=== PATIENT | female | born 1935 | race Caucasian/White ===

== ENCOUNTER 2017-01-10 17:30 | Emergency (ER) | payer MEDICARE ==
[~2017-01-10 17:30] MED LIST: ASAB PO; AZOR1 TA1 OR; DETROLLA4 PO; FISH-EPA1000 MG PO; FLAX SEED1000 MG OR; MAXZIDE PO; VITAMIN D31000 UNIT PO; ZOCOR20 PO
== END 2017-01-10 17:58 | disposition home or self-care (01) ==
LOC: ER 17:30
PROC: 2W3SXYZ Immobilization of Right Foot using Other Device (ICD-10-PCS; principal; 2017-01-10)
DX: S92.354A Nondisplaced fracture of fifth metatarsal bone, right foot, initial encounter for closed fracture (principal); I10 Essential (primary) hypertension; E11.9 Type 2 diabetes mellitus without complications; Z88.8 Allergy status to other drugs, medicaments and biological substances; Z79.82 Long term (current) use of aspirin; Z79.899 Other long term (current) drug therapy; W06.XXXA Fall from bed, initial encounter
CPT/HCPCS: 73630-RT; 99283